=== PATIENT | female | born 1980 | race Caucasian/White ===

== ENCOUNTER 2020-05-15 19:42 | Emergency (ER) | payer MEDICAID ==
[~2020-05-15] VITALS: Ht 167.6 cm; Wt 68.0 kg
[2020-05-15] MEDS ORDERED: AMOXICILLIN875 MG PO (20:12)
[2020-05-15 20:53] VITALS: BP 150/67
== END 2020-05-15 21:00 | disposition home or self-care (01) ==
LOC: ED 19:42
DX: S91.152A Open bite of left great toe without damage to nail, initial encounter (principal); W54.0XXA Bitten by dog, initial encounter; Y93.89 Activity, other specified; Y92.009 Unspecified place in unspecified non-institutional (private) residence as the place of occurrence of the external cause